=== PATIENT | female | born 1955 | race Caucasian/White ===

== ENCOUNTER 2019-10-16 15:49 | Outpatient (CLI) | payer OTHER, SELFPAY ==
[2019-10-16 16:54] LABS: Potassium 4.4 mmol/L (3.5-5.1)
[2019-10-18 22:12] LABS: FREE T4 1.05 ng/dL (0.76-1.46); TSH 1.94 uIU/mL (0.36-3.74)
[2019-10-18 22:33] LABS: T4 8.5 ug/mL (4.7-13.3)
[2019-10-19 16:48] LABS: T3,Free 3.2 pg/mL (2.8-5.3)
== END 2019-10-16 16:09 ==
PROVIDERS: PCP Family Medicine; Visit Provider Otolaryngology Otolaryngology/Facial Plastic Surgery
DX: R42 Dizziness and giddiness (principal); E05.00 Thyrotoxicosis with diffuse goiter without thyrotoxic crisis or storm; Z13.29 Encounter for screening for other suspected endocrine disorder
CPT/HCPCS: 36415; 84132; 84436; 84439; 84443; 84481